=== PATIENT | female | born 1960 | race Caucasian/White ===

== ENCOUNTER → 2023-03-04 | Outpatient (CLI) | payer OTHER, SELFPAY ==
--- NOTE | 2023-03-04 15:52 | RAD_ITS ---
INDICATION: Dorsalgia, unspecified EXAMINATION/TECHNIQUE: X-RAY - XR Spine Lumbar Min 4 Views COMPARISON: FINDINGS: VERTEBRAE: No spondylolisthesis. Preservation of the normal lumbar lordosis. No significant facet arthropathy. T12 compression fracture, age indeterminate, with approximately 25% loss of vertebral body height. L1 compression fracture, age indeterminate, with approximately 75% loss of vertebral body height. L3 compression fracture, age indeterminate with approximately 40% loss of vertebral body height. DISCS: Disc spaces are maintained. INCLUDED ABDOMEN: Included bowel gas pattern is non-obstructive. RAD/L/S Spine Min 4 Views IMPRESSION: Compression fractures at T12, L1, L3, age indeterminate. If clinically warranted, consider nonemergent MRI bar spine for further evaluation. Electronically Signed: Martina Lima MD at 19:02 EST Reading Location ID and State: [id number] / Tel , Service support ,
--- NOTE | 2023-03-04 15:55 | RAD_ITS ---
INDICATION: DORSALGIA, UNSPECIFIED EXAMINATION/TECHNIQUE: X-RAY - XR Sacrum/Coccyx Min 2 Views COMPARISON: FINDINGS: SACRUM/COCCYX: No displaced fracture, destructive or sclerotic lesions. Note that overlapping bowel shadows may however obscure fine detail in the frontal view. SACRO-ILIAC JOINTS: The articular structures are unremarkable. SOFT TISSUES: No soft tissue swelling or gas. RAD/Sacrum-Coccyx min 2 Views IMPRESSION: Unremarkable sacro-coccygeal spine. Electronically Signed: Martina Lima MD at 19:03 EST Reading Location ID and State: [id number] / Tel , Service support ,
== END | disposition home or self-care (01) ==
PROVIDERS: PCP Family Medicine
DX: M54.9 Dorsalgia, unspecified (principal)
CPT/HCPCS: 72110; 72220